=== PATIENT | male | born 1960 | race Caucasian/White ===

== ENCOUNTER 2021-10-24 22:09 | Emergency (ER) | payer OTHER | END 2021-10-24 22:43 | LOC: JD.ED 22:09 | DX: Z00.8 Encounter for other general examination (principal); Z87.891 Personal history of nicotine dependence | CPT/HCPCS: 99282; 99283 ==

== ENCOUNTER 2021-10-25 18:08 | Emergency (ER) | payer OTHER ==
[2021-10-25] MEDS ORDERED: Sodium Chloride 0.9% 10 ML Syringe FLUSH PRN (18:30)
[2021-10-25] MEDS ORDERED: Ondansetron 4 MG/2 ML SDV IVPUSH ONE (18:30)
[2021-10-25] MEDS ORDERED: LORazepam 2 MG/ML SDV IVPUSH ONE ×2 (18:30→19:01)
[2021-10-25] MEDS ORDERED: Lactated Ringers 1,000 ML IV SCH (18:45)
[2021-10-25] MEDS ORDERED: cloNIDine 0.1 MG Tab PO ONE (19:01)
[2021-10-25] MEDS ORDERED: Sodium Chloride 0.9% 1,000 ML IV ONE (20:51)
[2021-10-25] MEDS ORDERED: Magnesium Sulfate/Water 2 GM in Premix Bag 1 BAG IV ONE (20:53)
[2021-10-25] MEDS ORDERED: LORazepam 1 MG Tab PO ONE (21:56)
[2021-10-25] MEDS ORDERED: Sodium Chloride 0.9% 1,000 ML IV SCH (22:00)
== END 2021-10-25 23:03 ==
LOC: JD.ED 18:08
DX: R00.0 Tachycardia, unspecified (principal); F10.230 Alcohol dependence with withdrawal, uncomplicated; I10 Essential (primary) hypertension
CPT/HCPCS: 36415; 71045; 80053; 81001; 83605; 83735; 84443; 84484; 85025; 86140; 93005; 96365; 96366; 96375; 99285; A9270; J2060; J2405; J3475; J3490; J7030; J7120; 93010; 99283